=== PATIENT | male | born 1945 | race Caucasian/White ===

== ENCOUNTER 2016-12-06 10:03 | Emergency (ER) | payer MEDICARE, OTHER ==
[~2016-12-06] VITALS: Ht 180.3 cm; Wt 96.0 kg
[2016-12-06 10:16] VITALS: BP 144/96; PULSE 56; RESP 16; TEMP 98.2; O2SAT 95
[2016-12-06] MEDS ORDERED: AMLO5TAB2 PO (10:26)
[2016-12-06] MEDS ORDERED: ATAC32TA PO (10:26)
[2016-12-06] MEDS ORDERED: BISO10TA2 PO (10:26)
[2016-12-06] MEDS ORDERED: LIPI20TA PO (10:26)
[2016-12-06] MEDS ORDERED: ATOR40TA16 PO (10:26)
[2016-12-06] MEDS ORDERED: DIAZEPAM 5 MG TAB PO ONE (10:30)
--- NOTE | 2016-12-06 10:34 | PD ---
HPI Chief Complaint: Pain: Acute or Chronic Time Seen by Provider: 10:21 Travel History International Travel<30 days: No Contact w/Intl Traveler<30days: No Traveled to known affect area: No History of Present Illness HPI 70yo M presents to the ED with c/o right lower back spasm for 3 days. States advil relieves the pain but it comes back and he has to take more advil. Pain is located in right lower back, nonradiating, and worst with movement. Denies any fever, trauma, chest pain, sob, n/v, abdominal pain, dysuria, hematuria, focal weakness or numbness. PFSH Past Medical History Hx Anticoagulant Therapy: No Cardiovascular Problems: Yes (HTN, CHOL) Diabetes: No Diminished Hearing: No Hypertension: Yes Tetanus Vaccination: < 5 Years Influenza Vaccination: No Social History Alcohol Use: No Tobacco Use: No Substance Use: No Allergies-Medications (Allergen,Severity, Reaction): Coded Allergies: No Known Allergies (Unverified , 12/06/16) Reported Meds & Prescriptions Reported Meds & Active Scripts Active Acetaminophen 325 Mg Tab 325 Mg PO Q4-6H PRN Reported Atorvastatin (Atorvastatin Calcium) 40 Mg Tab 40 Mg PO HS Lipitor (Atorvastatin Calcium) 20 Mg Tab 20 Mg PO HS Atacand (Candesartan Cilexetil) 32 Mg Tab 32 Mg PO DAILY Bisoprolol-Hydrochlorothiazide 10-6.25 Mg Tab 1 Tab PO DAILY Amlodipine (Amlodipine Besylate) 5 Mg Tab 5 Mg PO DAILY Review of Systems Except as stated in HPI: all other systems reviewed are Neg Physical Exam Narrative GENERAL: 70yo M not in distress. SKIN: Focused skin assessment warm/dry. HEAD: Atraumatic. Normocephalic. CARDIOVASCULAR: Regular rate and rhythm. No murmur appreciated. RESPIRATORY: No accessory muscle use. Clear to auscultation. Breath sounds equal bilaterally. GASTROINTESTINAL: Abdomen soft, non-tender, nondistended. No rebound tenderness or guarding. BACK: No midline ttp. +Paraspinal ttp lumbar spine L1-L4. No CVA tenderness bilaterally. Negative straight leg test. MUSCULOSKELETAL: No obvious deformities. No clubbing. No cyanosis. No edema. NEUROLOGICAL: Awake and alert. No obvious cranial nerve deficits. Motor grossly within normal limits. Normal speech. PSYCHIATRIC: Appropriate mood and affect; insight and judgment normal. Data Data Last Documented VS Vital Signs Date Time Temp Pulse Resp B/P Pulse Ox O2 Delivery O2 Flow Rate FiO2 12/06/16 10:16 98.2 56 16 144/96 95 Orders Urinalysis - C+S If Indicated (12/06/16 10:29) Diazepam (Valium) (12/06/16 10:30) Labs Laboratory Tests Test 12/06/16 10:45 Urine Collection Type CLEAN CATCH Urine Color STRAW Urine Turbidity CLEAR Urine pH 5.5 Urine Specific [place] 1.020 Urine Protein NEG mg/dL Urine Glucose (UA) NEG mg/dL Urine Ketones TRACE mg/dL Urine Occult Blood TRACE Urine Nitrite NEG Urine Bilirubin NEG Urine Leukocyte Esterase NEG Urine WBC 0-2 /hpf Urine Squamous Epithelial 0-2 /hpf Cells Urine Mucus FEW /lpf Microscopic Urinalysis Comment CULT NOT INDICATED MDM Medical Decision Making Medical Screen Exam Complete: Yes Emergency Medical Condition: Yes Interpretation(s) Laboratory Tests Test 12/06/16 10:45 Urine Collection Type CLEAN CATCH Urine Color STRAW (YELLW/STRAW) Urine Turbidity CLEAR (CLEAR) Urine pH 5.5 (5.0-8.5) Urine Specific [place] 1.020 (1.002-1.035) Urine Protein NEG mg/dL (NEG-TRACE) Urine Glucose (UA) NEG mg/dL (NEG) Urine Ketones TRACE mg/dL (NEG) Urine Occult Blood TRACE (NEG) Urine Nitrite NEG (NEG) Urine Bilirubin NEG (NEG) Urine Leukocyte Esterase NEG (NEG) Urine WBC 0-2 /hpf (0-5) Urine Squamous Epithelial 0-2 /hpf (0-5) Cells Urine Mucus FEW /lpf (OCC) Microscopic Urinalysis Comment CULT NOT INDICATED Differential Diagnosis Musculoskeletal pain vs. nephrolithiasis vs. pyelonephritis Narrative Course 70yo well appearing male with right lower back pain that is relieved with advil. However, pt does not want to keep taking advil and states it comes back and want something else. Denies any trauma and has no red flags for back pain. Denies any history of cancer. Will try valium and check UA. UA showed trace blood. No leukocyte or nitrite. Pt states he has occasional trace blood in his urine and has been worked up by a urologist. Pt reevaluated after valium and pain has resolved. Encouraged heating pads, NSAIDs or acetaminophen and strict return precautions given. Pt to follow up with PMD. Diagnosis Primary Impression: Back pain Qualified Code: M54.5 - Acute right-sided low back pain without sciatica Patient Instructions: General Instructions Departure Forms: Tests/Procedures Additional Instructions: Please return to the ED immediately if you have any new trauma, worsening pain, fever, abdominal pain, weakness or numbness. Please follow up with your PMD in 3-7 days. Med/Other Pt SpecificInfo: Prescription(s) given Scripts Acetaminophen 325 Mg [id number] Mg PO Q4-6H PRN (PAIN SCALE 1 TO 4) #20 TAB Ref 0 Prov:Elaina Phelps DO 12/06/16 Disposition: 01 DISCHARGE HOME Condition: Stable Elaina Phelps DO Dec 06, 2016 10:34 Elaina Phelps DO Dec 06, 2016 10:34
[2016-12-06 11:11] LABS: BLOOD, URINE TRACE (NEG); GLUCOSE,URINE NEG (NEG); KETONE, URINE TRACE mg/dL (NEG); NITRITE,URINE NEG (NEG); PH, URINE 5.5 (5.0-8.5)
[2016-12-06 11:39] LABS: METHOD OF COLLECTION CLEAN CATCH; URINE COLOR STRAW (YELLW/STRAW)
[2016-12-06 11:40] LABS: SQUAMOUS EPITHELIAL CELL URINE 0-2 /hpf (0-5); WBC, URINE 0-2 /hpf (0-5)
[2016-12-06 11:41] LABS: COMMENT (UR) CULT NOT INDICATED; CULTURE IF INDICATED CULT NOT INDICATED; MUCUS URINE FEW /lpf (OCC)
[2016-12-06] MEDS ORDERED: ACET325T PO (11:56)
== END 2016-12-06 12:15 | disposition home or self-care (01) ==
LOC: PHEFT 10:03
DX: M54.5 Low back pain (principal); I10 Essential (primary) hypertension
CPT/HCPCS: 81001; 99283